=== PATIENT | female | born 1965 | race Caucasian/White ===

== ENCOUNTER 2018-06-12 13:39 | Outpatient (REF) | payer BC, SELFPAY ==
--- NOTE | 2018-06-12 11:30 | PAPFT_PTH ---
PATIENT: Nara Wren LOC: [facility] U#:[id number] AGE/SX: 52/F ROOM: RE06/12/[address]: ANGELES Brice : 1965 BED: DIS: 06/12/2018 SPEC #: [id number] RECD: 06/12/18 17:59 STATUS: STACIA RERosa #: [id number] GIGI: 06/12/18 11:[address]: Zoe Ro DEPT: [facility] Cytology RECD BY: Merle Lozoya Tissues: 1 - CX/ENDOCX FOR PAP SMEARS Procedures: PAP THIN PREP/UVM Screening HPV DNA PROBE Comments: [id number]
== END 2018-06-12 13:59 ==
LOC: LBN 13:39
PROVIDERS: PCP Nurse Practitioner Family; Visit Provider Nurse Practitioner Family
DX: Z12.4 Encounter for screening for malignant neoplasm of cervix (principal); Z11.51 Encounter for screening for human papillomavirus (HPV)
CPT/HCPCS: 88142; 87624

== ENCOUNTER 2018-06-18 08:38 | Outpatient (CLI) | payer BC, SELFPAY ==
[2018-06-18 11:07] LABS: BUN 13 mg/dL (7-18); Calcium 9.4 mg/dL (8.5-10.1); Chloride 100 mmol/L (98-107); FREE T4 0.82 ng/dL (0.76-1.46); Glucose 84 mg/dL (70-100); Potassium 4.2 mmol/L (3.5-5.1); Sodium 138 mmol/L (136-145); TSH 1.54 uIU/mL (0.358-3.74)
[2018-06-18 11:24] LABS: Cholesterol 295 mg/dL (50-200); HDL Cholesterol 74 mg/dL (40-60); LDL CHOLESTEROL 200 mg/dL (<100); Triglyceride 66 mg/dL (30-150)
== END 2018-06-18 08:58 ==
PROVIDERS: PCP Nurse Practitioner Family; Visit Provider Nurse Practitioner Family
DX: E78.5 Hyperlipidemia, unspecified (principal); L65.9 Nonscarring hair loss, unspecified
CPT/HCPCS: 36415; 80048; 80061; 83721; 84439; 84443

== ENCOUNTER 2019-01-04 09:05 | Day surgery (SDC) | payer BC, SELFPAY ==
--- NOTE | 2019-01-04 06:21 | W.COLOREPORT ---
Date of service: 01/04/19 Time of Service: 10:18 Colonoscopy Report Date of procedure: 01/04/19 Pre-op diagnosis general: Colon Cancer Screening and Family History Post-op diagnosis procedure note: other (Polyps) Procedure: Colonoscopy with polypectomy by forceps and snare Surgeon: Kaya Carson Anesthesia proc note operative: other (General/ ASA1 /Mario Alberto Mims, ASSOCIATE DIRECTOR OF SALES) Estimated blood loss (mL): 3 Pathology: other (cecal polyp, ascending polyp and sigmoid polyp) Complications: None Disposition: same day Indications: Mrs. Wren is a pleasant 53 year old female who was seen in the office for a colonoscopy. She has a family history of colon cancer. Risks, benefits and complications have been reviewed. Complications include but are not limited to bleeding, pain, perforation, missed small lesion/polyp, sore throat, aspiration and adverse reaction to the medications. Questions were entertained and answered to their satisfaction and they wished to proceed. No guarantees were given or implied. Prep: Miralax/Dulcolax Procedure Start Time: 10:18 Procedure End Time: 10:46 Retraction Time: 23 minutes Findings: Small sessile polyp right at the edge of the appendiceal orifice Pedunculated polyp in the ascending colon Sessile polyp in the sigmoid colon Procedure Description: After informed consent was obtained the patient was taken to the procedure room and placed in a left decubitous position. Monitors were applied and a time out was done. The patients name, date of , procedure, allergies to medications and metal in their body was reviewed. The patient was then sedated. Once sedated and comfortable a rectal exam was done. External exam was normal. Internal exam revealed a normal sphincter tone and no palpable masses. The scope was then introduced and retro-flexed. No internal hemorrhoids were identified. The scope was then advanced to the cecum without difficulty. The TI and appendiceal orifice were identified. The prep was adequate. The scope was then slowly retracted over 23 minutes back into the rectum. Polyps were removed with cold forceps in the cecum, in the ascending and sigmoid colon with snare. The scope was removed and the patient was woken up and taken back to Same day surgery in stable condition. The patient tolerated the procedure well and there were no immediate complications. Follow up: The patient should follow up in 3-5 years unless they develop changes in bowel habits or other new gastrointestinal complaints.
--- NOTE | 2019-01-04 06:24 | PDOC.DSDIS_ITS ---
Discharge Plan Disposition Patient Disposition: HOME Condition: Good Discharge Details Reason For Visit: Colon Cancer Screening Attending Provider: Kaya Carson Primary Care Provider: Zoe Ro Home Meds and New Rx's Prescriptions: Continued multivitamin Capsule 1 cap PO DAILY RF: 0 [place]-3 Fish Oil 300-1,000 mg Capsule 1 cap PO DAILY RF: 0 Discontinued polyethylene glycol 3350 17 gram/dose powder 238 g PO ONCE Qty: 238 RF: 0 bisacodyl [Dulcolax (bisacodyl)] 5 mg tablet,delayed release (DR/EC) 5 mg PO ONCE Qty: 4 RF: 0 Discharge Instructions Instructions: Colonoscopy (DC), Colorectal Polyps (DC) Additional Instructions: Findings: 3 polyps Follow up: 3-5 years Please call if you develop: fevers >101.5 Nausea or Vomiting Abdominal pain that is not transient DAY SURGERY UNIT POST COLONOSCOPY INSTRUCTIONS 1. Because there will be medication in your system for the next 24 hours, you may feel a little sleepy. Your coordination will be affected. Therefore: a. Do not drive or operate dangerous equipment for 24 hours. b. Do not drink alcohol beverages for 24 hours (not even beer). c. Plan to go home and rest for the day. 2. Generally there are no restrictions on your activity after a day or so has gone by, but you may feel a bit fatigued for a few days. 3 After you arrive home you may have a light meal and return to a normal diet as you can tolerate it without feeling sick to your stomach. 4. After surgery, you may feel pain or discomfort. This should be only transient, but if it persists please contact your doctor. 5. If there are any questions regarding the findings of your procedure, please feel free to contact your doctor. 6. If you are unable to contact your doctor with a problem, contact the hospital at [phone]. 7. Continue all your regular medications unless directed otherwise. I understand the above instructions and have no questions. Signature of Patient or Responsible Adult Escort Date/Time Name of Responsible Adult Escort Signature of Nurse Date/Time Activity:: Activity as Tolerated Diet:: As Tolerated Discharge Orders Discharge Orders: Discharge Order (Routine); Ordered 01/04/19 Ordered By: Kaya Carson DS: Diagnosis Discharge Diagnosis (1) S/P colonoscopy: Status: Acute (2) Colorectal polyp detected on colonoscopy: Status: Acute
[2019-01-04 09:13] VITALS: BP 116/75; PULSE 78; RESP 16; TEMP 37.2; O2SAT 96
[2019-01-04] MEDS: Lactated Ringers 1,000 ML 80 ML IV (09:36)
--- NOTE | 2019-01-04 10:25 | BOWEL_PTH ---
PATIENT: Nara Wren LOC: [facility] U#:[id number] AGE/SX: 53/F ROOM: RE01/04/[address]: Kaya Carson MD : 1965 BED: DIS: 01/04/2019 SPEC #: [id number] RECD: 01/04/19 12:50 STATUS: STACIA REQ #: [id number] GIGI: 01/04/19 10:[address]: Kaya Carson DEPT: Surgical Specimen RECD BY: Merle Lozoya ENTERED: 01/04/19 12:51 SP TYPE: Bowel OTHR DR: Zoe Ro, ANGELES Tissues: 1 - BIOPSY BOWEL 2 - BIOPSY BOWEL 3 - BIOPSY BOWEL Procedures: GROSS AND MICRO LEVEL 4 Comments: [id number]
[2019-01-04 11:29] VITALS: BP 122/75; PULSE 60; RESP 16; TEMP 36.1; O2SAT 98
== END 2019-01-04 11:40 | disposition home or self-care (01) ==
LOC: SUR 09:06
PROVIDERS: PCP Nurse Practitioner Family; Visit Provider Surgery
PROC: 0DJD8ZZ Inspection of Lower Intestinal Tract, Via Natural or Artificial Opening Endoscopic (ICD-10-PCS; CPT 45378; principal; 2019-01-04 10:30)
DX: Z12.11 Encounter for screening for malignant neoplasm of colon (principal); D12.0 Benign neoplasm of cecum; D12.2 Benign neoplasm of ascending colon; K63.5 Polyp of colon; Z80.0 Family history of malignant neoplasm of digestive organs
CPT/HCPCS: 45385; 45380; 88305; J2405; J3010

== ENCOUNTER 2019-05-03 12:17 | Outpatient (CLI) | payer BC, SELFPAY ==
[2019-05-05 11:34] LABS: Wasp Venom IgE <0.35 kU/L; White Faced Hornet Venom IgE <0.35 kU/L
[2019-05-05 17:32] LABS: CLASS 0; Venom Bumble Bee IgE <0.10 kU/L (<0.35)
== END 2019-05-03 12:37 ==
PROVIDERS: PCP Nurse Practitioner Family; Visit Provider Otolaryngology Otolaryngology/Facial Plastic Surgery
DX: W57.XXXA Bitten or stung by nonvenomous insect and other nonvenomous arthropods, initial encounter (principal); T14.8XXA Other injury of unspecified body region, initial encounter
CPT/HCPCS: 36415; 86003

== ENCOUNTER 2022-11-04 17:58 | Emergency (ER) | payer OTHER, SELFPAY ==
[2022-11-04 18:00] VITALS: BP 165/106; PULSE 99; RESP 16; TEMP 36.8; O2SAT 97
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
[2022-11-04] MEDS: Ibuprofen 600 MG TAB PO (18:33)
[2022-11-04] MEDS: Acetaminophen 500 MG TAB 1000 MG PO (18:33)
--- NOTE | 2022-11-04 18:52 | DI.RAD_ITS ---
Exam(s) XR FOOT LT COMPLETE EXAM: XR FOOT LT COMPLETE CLINICAL HISTORY: 4th toe injury. TECHNIQUE: 2D digital imaging was performed. Three views. COMPARISON: No exams were available for comparison FINDINGS: BONES: No acute fracture is present. No bony destructive lesion is seen. Small heel spurs. JOINTS: No dislocation present. Mild degenerative changes 1st MTP joint. SOFT TISSUE: Normal. IMPRESSION: Unremarkable radiographs of the left foot. DATA REPOSITORY: RADIATION DOSE DELIVERED:
--- NOTE | 2022-11-04 19:17 | DI.VRAD_ITS ---
PROCEDURE INFORMATION: Exam: XR Left Foot Exam date and time: 11/04/2022 6:52 PM Age: 57 years old Clinical indication: Pain; Foot; Left TECHNIQUE: Imaging protocol: Radiologic exam of the left foot. Views: 3 or more views. COMPARISON: No relevant prior studies available. FINDINGS: Bones/joints: Minimal calcaneal spurring. No acute fracture or dislocation. Degenerative changes at the 1st metatarsophalangeal joint Soft tissues: Normal. IMPRESSION: No acute findings. Degenerative changes as noted Dictated and Authenticated by: Rogelio Cruz MD. Ordering:MISHA Sotelo MD
[2022-11-04 19:55] VITALS: BP 151/93; PULSE 78; RESP 16; TEMP 36.7; O2SAT 95
--- NOTE | 2022-11-06 17:29 | NUR.NOTE ---
Nursing Note: Accessed patient chart to print provider note to be faxed to [facility] for billing purposes.
== END 2022-11-04 19:58 | disposition home or self-care (01) ==
PROVIDERS: Emergency Provider Physician Assistant; PCP Nurse Practitioner Family
DX: M79.675 Pain in left toe(s) (principal); W22.8XXA Striking against or struck by other objects, initial encounter
CPT/HCPCS: 99283; 73630

== ENCOUNTER 2024-04-27 10:51 | Outpatient (CLI) | payer OTHER, SELFPAY ==
--- NOTE | 2024-04-27 10:45 | RT.EKG_ITS ---
APPROVED REPORT Exam: Resting ECG Reason for Exam: chest discomfort Patient Location: O HR:100 bpm ECG Measurements Heart Rate 100 AXIS NH 135 P -14 QRSd 88 QRS -70 QT 356 T 15 QTc 460 Conclusion Sinus tachycardia...rate> 99 RSR' in V1 or V2, Left anterior fascicular block
== END 2024-04-27 10:52 | disposition home or self-care (01) ==
LOC: DI.CM 10:52
PROVIDERS: PCP Nurse Practitioner Family; Visit Provider Physician Assistant
DX: R07.89 Other chest pain (principal)
CPT/HCPCS: 93010

== ENCOUNTER 2024-04-27 11:22 | Emergency (ER) | payer OTHER, SELFPAY ==
[2024-04-27] VITALS (37 sets, daily range): BP systolic 50–179; BP diastolic 20–152; PULSE 58–119; RESP 12–32; TEMP 36.9; O2SAT 96–100
--- NOTE | 2024-04-27 11:15 | RT.EKG_ITS ---
APPROVED REPORT Exam: Resting ECG Reason for Exam: Chest Pain Patient Location: E HR:89 bpm ECG Measurements Heart Rate 89 AXIS IN 140 P 5 QRSd 99 QRS -63 QT 376 T 12 QTc 459 Conclusion Sinus 89 normal axis no stemi
--- NOTE | 2024-04-27 11:30 | DI.RAD_ITS ---
Exam(s) XR PORTABLE CHEST AP EXAM: XR PORTABLE CHEST AP CLINICAL HISTORY: CHEST PAIN TECHNIQUE: 2D digital imaging was performed of the chest. One image was obtained. An AP view was ob tained. COMPARISON: No exams were available for comparison FINDINGS: MEDIASTINUM: Normal. HEART: Normal. PULMONARY VASCULATURE: Normal. LUNGS: Clear. PLEURAL SPACE: No pleural effusion or pneumothorax. BONE:Within normal limits for the patient's age. OTHER FINDINGS:Normal. IMPRESSION: No acute pulmonary findings. DATA REPOSITORY: RADIATION DOSE DELIVERED:
[2024-04-27] MEDS: nitroGLYcerin 0.4 MG TAB SL (11:38)
[2024-04-27] MEDS: Aspirin 81 MG CHEW 324 MG CH (11:38)
[2024-04-27] MEDS: hydrALAZINE 20 MG/ML VIAL 10 MG IVP (11:38)
[2024-04-27] MEDS: Normal Saline Flush 10 ML SYR IVP (11:39)
[2024-04-27 11:40] LABS: Abs Immature Grans 0.04 10^3/uL (0.0-0.06); Absolute Basophil Count 0.05 10^3/uL (0.0-0.2); Absolute Eosinophil Count 0.09 10^3/uL (0.0-0.7); Absolute Lymphocyte Count 2.56 10^3/uL (1.2-3.4); Absolute Monocyte Count 0.58 10^3/uL (0.1-0.8); Absolute Neutrophil Count 2.89 10^3/uL (1.2-6.7); Basophils % 0.8 %; Eosinophils % 1.4 %; HCT 44.7 % (36.0-46.0); HGB 15.4 g/dL (11.2-15.7); Immature Grans % 0.6 %; Lymphocytes % 41.2 %; MCH 34.1 pg (27.0-33.0); MCHC 34.5 % (32.0-36.0); MCV 99 fL (80-95); MPV 9.5 fL (8.0-11.0); Monocytes % 9.3 %; Neutrophils % 46.7 %; Platelet Count 219 10^3/uL (130-400); RBC 4.52 10^6/uL (3.93-5.22); RDW 13.7 % (11.7-14.6); RDW-SD 50.4 fL; WBC 6.21 10^3/uL (4.4-10.8)
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
[2024-04-27 11:57] LABS: ALT 67 U/L (14-59); AST 31 U/L (15-37); Albumin 4.3 g/dL (3.4-5.0); Alkaline Phosphatase 107 U/L (46-116); Anion Gap 11.8 mmol/L (3-11); BUN 15 mg/dL (7-18); Bilirubin, Total 0.59 mg/dL (0.2-1.0); CO2 27.2 mmol/L (21.0-32.0); CREATININE 0.9 mg/dL (0.55-1.02); Calcium 10.3 mg/dL (8.5-10.1); Chloride 102 mmol/L (98-107); Estimated GFR 74.57 (mL/min/1.73m2); Glucose 107 mg/dL (74-106); Magnesium 1.9 mg/dL (1.8-2.4); Potassium 3.9 mmol/L (3.5-5.1); Sodium 141 mmol/L (136-145); Total Protein 8.7 g/dL (6.4-8.2); Troponin I < 50 ng/L (< or =60)
[2024-04-27 13:01] LABS: Troponin I < 50 ng/L (< or =60)
== END 2024-04-27 13:30 | disposition home or self-care (01) ==
PROVIDERS: Emergency Provider Emergency Medicine; PCP Nurse Practitioner Family
DX: R07.9 Chest pain, unspecified (principal); R11.0 Nausea; I10 Essential (primary) hypertension
CPT/HCPCS: 36415; 80053; 93005; 96374; 99284; 71045; 83735; 84484; 85025; 93010; 99283; J0360

== ENCOUNTER 2024-11-19 11:02 | Outpatient (REF) | payer OTHER, SELFPAY ==
--- NOTE | 2024-11-19 09:45 | PAPFT_PTH ---
PATIENT: Nara Wren LOC: [facility] U#:[id number] AGE/SX: 59/F ROOM: RE11/19/[address]: ANGELES Brice : 1965 BED: DIS: 11/19/2024 SPEC #: [id number] RECD: 11/19/24 13:06 STATUS: STACIA KIM #: [id number] GIGI: 11/19/24 09:[address]: Zoe Ro DEPT: [facility] Cytology RECD BY: Merle Lozoya Tissues: 1 - CX/ENDOCX FOR PAP SMEARS Procedures: PAP THIN PREP/UVM Screening HPV DNA PROBE Comments: [id number] (HPV 16 & 18/45)
== END 2024-11-19 11:03 | disposition home or self-care (01) ==
LOC: LBN 11:02
PROVIDERS: PCP Nurse Practitioner Family; Visit Provider Nurse Practitioner Family
DX: Z12.4 Encounter for screening for malignant neoplasm of cervix (principal)
CPT/HCPCS: 88142; 87624

== ENCOUNTER 2025-01-04 02:06 | Outpatient (CLI) | payer OTHER, SELFPAY ==
--- NOTE | 2025-01-04 12:41 | DI.MAMMO_ITS ---
Exam(s) MAMMO SCREENING EXAM: MAMMO SCREENING CLINICAL HISTORY: screening,Z12.39 TECHNIQUE: Bilateral full field digital CC and MLO mammographic images were obtained with 3D tomosyn thesis and utilizing computer aided detection (CAD). COMPARISON: Available for comparison. FINDINGS: Masses/Architectural Distortion: No suspicious masses or areas of architectural distortion are presen t. Microcalcifications: No suspicious pleomorphic-type are seen. Skin Thickening/Nipple Retraction: None. IMPRESSION: 1. No significant interval change with no specific features of malignancy noted. 2. Unless there is more urgent need, screening mammography is recommended, as per [place] [employer] guidelines. BI-RADS Category 1 - Negative Breast Density - Category B - There are scattered areas of fibroglandular density. Breast density Category C or D implies that the patient has dense breast tissue. Dense breast tissue can make it harder to find cancer on a mammogram. Dense breast tissue is also associated with an incr eased risk of breast cancer. This information about the result of the mammogram report was provided to the patient to raise their awareness. Use this report when you speak with the patient about their risks for breast cancer, which includes their family history. At that time, you may recommend additional screening tests (Ultrasoun d or MRI) as these tests may add significant information. A negative radiographic report should not delay biopsy if a dominant or clinically suspicious mass is present. Up to ten percent of cancers are not identified on mammography. A negative report may reinforce clinical impression. Adenosis and dense breasts may obscure an underlying neoplasm. False positive reports average 6 to 10%. Patient will receive a letter notifying them of these results.
== END 2025-01-04 02:26 ==
LOC: DI 02:06
PROVIDERS: PCP Nurse Practitioner Family; Visit Provider Nurse Practitioner Family
DX: Z12.31 Encounter for screening mammogram for malignant neoplasm of breast (principal); R92.323 Mammographic fibroglandular density, bilateral breasts
CPT/HCPCS: 77063; 77067

== ENCOUNTER 2025-07-14 06:57 | Day surgery (SDC) | payer OTHER, SELFPAY ==
[2025-07-14 07:05] VITALS: BP 138/88; PULSE 67; RESP 16; TEMP 36.7; O2SAT 99
[2025-07-14 07:23] VITALS: BMI 34.3
--- NOTE | 2025-07-14 07:23 | W.ANESPRE ---
General Info Date of Service Date Performed: 07/14/25 Height: 5 ft 4 in Weight: 90.7 kg Body Mass Index (BMI): 34.3 Surgical Procedure: Operation Date: 07/14/25 08:20 Proposed Procedure Side Surgeon p Colonoscopy Marion Posada MD Meds Allergies and Home Medications Allergies Allergy/AdvReac Type Severity Reaction Status Date / Time benzonatate (From Tessalon Allergy Intermediate Rash Verified 07/14/25 07:15 Perles) gluten AdvReac Intermediate Diarrhea Verified 07/14/25 07:15 Home Medication Medication Instructions Recorded multivitamin 1 cap PO DAILY 12/31/18 omega-3s 300 ag-oyc-ghf-other 1 cap PO DAILY 12/31/18 zmerq1h-eegx oil 1,000 mg capsule ([place]-3 Fish Oil) fluticasone propionate 50 1 spray intranasal DAILY 07/01/24 mcg/actuation nasal spray,suspension bisacodyl 5 mg tablet,delayed 5 mg PO ONCE Colonoscopy Bowel 06/30/25 release Prep #4 tabs polyethylene glycol 3350 17 238 g PO ONCE #238 grams 06/30/25 gram/dose oral powder Current Visit Medications: Current Medications Generic Name Dose Route Start Last Admin Trade Name Freq PRN Reason Stop Dose Admin Ringer's Solution 1,000 mls @ 80 mls/hr 07/14/25 06:00 IV 07/14/25 23:59 INFUSION SUGAR IV Miscellaneous Supplies 1 each 07/14/25 06:00 Iv Access IV 07/14/25 23:59 DIRECTED SUGAR Sodium Biphosphate/Sodium Phosphate 133 ml 07/14/25 06:00 Na Phosphate Enema-Adult 133 Ml Btl DC 07/14/25 23:59 DIRECTED PRN Sodium Chloride 0 ml 07/14/25 06:00 Normal Saline Flush 10 Ml Syr IV 07/14/25 23:59 PRN PRN Sodium Chloride 0 ml 07/14/25 06:00 Normal Saline 10 Ml Vial IJ 07/14/25 23:59 DIRECTED PRN Sterile Water 0 ml 07/14/25 06:00 Water,Injection,Sterile 10 Ml Vial IJ 07/14/25 23:59 DIRECTED PRN PFSH Active Problems Active Problems: Problem Status Onset Code Elevated BP without diagnosis of hypertension Chronic R03.0 Hyperlipidemia Chronic E78.5 Obesity Chronic E66.9 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 pelvic organs Chronic N81.9 Vasomotor symptoms due to menopause Chronic N95.1 Medical History Medical History Nontoxic nodular goiter Tubular adenoma of colon On 2019 colonoscopy Surgical History Surgical History S/P colonoscopy (01/04/19) S/P fine needle aspiration (~09/09/02) pathology showed non toxic nodular goiter Tobacco Smoking/Tobacco Use Status: Never Passive smoking exposure: Yes Second hand exposure: Yes Alcohol Alcohol Intake: current Alcohol intake frequency: 0-2 drinks per day Alcohol type: wine Substance Use Substance use: Never Substance use type: does not use Vital Signs and Lab Results Vital Signs Most Recent Vital Signs in EMR: Most Recent Vital Signs Temp Pulse Resp BP Pulse Ox 36.7 C 67 16 138/88 99 07/14/25 07:05 07/14/25 07:05 07/14/25 07:05 07/14/25 07:05 07/14/25 07:05 Imaging and Studies Imaging and Studies Study information below may be from another EMR and interpreted by another provider. Please see original notes in EMR for more complete details. EKG Summary: 04/27/24 Conclusion Sinus 89 normal axis no stemi Anesthesia Assessment and Plan Anesthesia History Personal History: No History of Anesthesia Complications Family History: No Family History of Anesthesia Complications Exercise Tolerance Exercise Tolerance: Metabolic Equivalents>4 Pertinent Negatives Pertinent Negatives: No Symptoms of GERD, No Major Cardiovascular Symptoms or Complaints and No Major Pulmonary Symptoms or Complaints Cardiac & Pulmonary Exam Cardiac Exam: Normal S1/S2 Heart Sounds Pulmonary Exam: Clear Bilateral Breath Sounds Implantable Cardiac Device Does patient have a Pacemaker or an ICD?: No Airway Exam Known Difficult Airway: No Mallampati Class: 3 Mouth Opening: Normal (> 3cm) Thyromental Distance: Greater than 3 cm Neck Range of Motion: Full ROM Neck Circumference: Thick Teeth Condition: Normal Dentition ASA Classification ASA Score: ASA 2 Emergency Case?: No NPO Status NPO Status: NPO Clears >2 hours, Solids >8 hours Anesthesia Plan Resuscitation Status: Full Code Anesthesia Technique: General Anesthesia Airway Planned: Natural Airway Monitors Used: Standard Monitors
[2025-07-14] MEDS: Lactated Ringers 1,000 ML 80 ML IV (07:30)
--- NOTE | 2025-07-14 08:17 | BOWEL_PTH ---
PATIENT: Nara Wren LOC: [facility] U#:[id number] AGE/SX: 59/F ROOM: RE07/14/[address]: Marion Posada MD : 1965 BED: DIS: 07/14/2025 SPEC #: [id number] RECD: 07/14/25 11:02 STATUS: STACIA KIM #: [id number] GIGI: 07/14/25 08:[address]: Marion Posada DEPT: Surgical Specimen RECD BY: Merle Lozoya ENTERED: 07/14/25 11:05 SP TYPE: Bowel OTHR DR: Zoe Ro, ANGELES Tissues: 1 - BIOPSY BOWEL 2 - BIOPSY BOWEL 3 - BIOPSY BOWEL 4 - BIOPSY BOWEL Procedures: GROSS AND MICRO LEVEL 4 Comments: [id number]
--- NOTE | 2025-07-14 08:43 | COLE_ITS ---
Date of service: 07/14/25 Time of Service: 08:43 Colonoscopy Report Date of procedure: 07/14/25 Pre-op diagnosis general: History of colon polyps Post-op diagnosis procedure note: same (1. cecum polyp. 2. multiple transverse colon polyps. 3. rectum polyp. 4. multiple distal rectum polyps) Procedure: Colonoscopy with cold forceps polypectomy, hot snare polypectomy, endoclip application Surgeon: Marion Posada Anesthesia Type: General:No Airway Estimated blood loss (mL): 4 Pathology: other (1. cecum polyp. 2. multiple transverse colon polyps. 3. rectum polyp. 4. multiple distal rectum polyps) Complications: None Indications: History of colon polyps, mother and father with colon cancer Prep: Miralax/Dulcolax (excellent) Procedure Description: Informed consent was obtained and the patient was taken to the procedure area. The patient was placed in left lateral decubitus position on the procedure table. Timeout was performed. Anesthesia was induced. A lubricated c olonoscope was inserted through the anus and passed to the cecum. The cecum was identified by the ileocecal valve and the appendiceal orifice. The scope was then slowly withdrawn and the colonic and rectal mucosa examined. TI intubated and examined. It appears normal. Hyperplastic lymphoid follicles noted. cecum with 4mm sessile polyp excised with cold forceps. Transverse colon with two polyps, 7mm sessile and 10mm by 4mm sessile. Both removed piecemeal with cold forceps. Removal and retrieval was complete. Rectum at 25cm with a 12mm sessile polyp with flat component on edges. Excised with hot snare and cold forceps, retrieved with polyp trap. Removal and retrieval were complete. Resolution endoclip placed to reapproximate mucosa and prevent bleeding. Distal rectum at the junction with the internal hemorrhoids with multiple 2-3mm polypoid lesions, entry level marketing representative biopsies obtained with cold forceps. No diverticulosis was seen. Uncomplicated internal hemorrhoids present. Assessment and plan: Family history of colon cancer in mother and father history of adenomatous polyps cecum polyp transverse colon polyps (2) rectum polyp multiple distal rectum polyps (3) All polyps seen were excised today. Recommend next colonoscopy in 3 years. Will follow up on pathology report and notify patient of result of the types of polyps grown today.
[2025-07-14 08:46] VITALS: BP 106/84; PULSE 65; RESP 14; TEMP 36.2; O2SAT 98
--- NOTE | 2025-07-14 08:50 | W.PM.DSUDISC ---
Date of service: 07/14/25 Discharge Plan Disposition Patient Disposition: Home Condition: Stable Discharge Details Reason For Visit: colonoscopy Attending Provider: Marion Posada Primary Care Provider: Zoe Ro Home Meds and New Rx's Prescriptions: Continued fluticasone propionate 50 mcg/actuation spray,suspension 1 spray intranasal DAILY Rx Instructions: administer into each nostril multivitamin Capsule 1 cap PO DAILY [place]-3 Fish Oil 300-1,000 mg Capsule 1 cap PO DAILY Discontinued bisacodyl 5 mg tablet,delayed release (DR/EC) 5 mg PO ONCE Qty: 4 0RF Rx Instructions: Per Colonoscopy bowel prep instructions polyethylene glycol 3350 17 gram/dose powder 238 g PO ONCE Qty: 238 0RF Rx Instructions: For Colonoscopy bowel prep, as directed by office Discharge Instructions Additional Instructions: Family history of colon cancer in mother and father history of adenomatous polyps cecum polyp (1) transverse colon polyps (2) rectum polyp (1) multiple distal rectum polyps near the hemorrhoids (3) All polyps seen were removed today. The single rectum polyp was larger in size, and a clip was placed to help with healing and prevent bleeding. This will fall off on its own. I think your next colonoscopy will be due in 3 years. I will follow up on polyp biopsy report and notify you of the types of polyps you are growing, and will confirm about the timing of your next colonoscopy. Stand Alone Forms: Portal Information Discharge Orders Discharge Orders: Discharge Order (Routine); Ordered 07/14/25 Ordered By: Marion Posada DS: Diagnosis Discharge Diagnosis (1) Encounter for colonoscopy due to history of adenomatous colonic polyps: Status: Acute (2) Family history of colon cancer: Status: Acute (3) Polyp of cecum: Status: Acute (4) Polyp of transverse colon: Status: Acute (5) Rectal polyp: Status: Acute
[2025-07-14 09:08] VITALS: BP 110/73; PULSE 51; RESP 16; TEMP 36.2; O2SAT 99
--- NOTE | 2025-07-14 09:20 | W.ANESPOSTOP ---
Postoperative Evaluation Date, Time and Location Date Performed: 07/14/25 Time Performed: :20 Patient Location: Day Surgery Unit Vital Signs Most Recent Imported Vital Signs: Most Recent Vital Signs Temp Pulse Resp BP Pulse Ox 36.2 C L 51 L 16 110/73 99 07/14/25 09:08 07/14/25 09:08 07/14/25 09:08 07/14/25 09:08 07/14/25 09:08 Pain Score Most Recent Pain Score: Most Recent Pain Score Pain Level 0 07/14/25 09:08 Assessment Mental Status: Awake (Alert & Oriented to Patient Baseline) Airway and Respiratory Function: Patent airway with normal (patient baseline) respiratory exam Cardiovascular Function: Hemodynamically Stable Hydration Status: Adequately Hydrated Nausea & Vomiting: No Nausea or Vomiting Pain: Pt. Denies Any Pain Peripheral Nerve Block: Patient did not receive a nerve block
== END 2025-07-14 09:20 | disposition home or self-care (01) ==
PROVIDERS: PCP Nurse Practitioner Family; Visit Provider Surgery
PROC: 0DJD8ZZ Inspection of Lower Intestinal Tract, Via Natural or Artificial Opening Endoscopic (ICD-10-PCS; CPT 45378; principal; 2025-07-14 08:15)
DX: Z12.11 Encounter for screening for malignant neoplasm of colon (principal); Z80.0 Family history of malignant neoplasm of digestive organs; D12.0 Benign neoplasm of cecum; D12.4 Benign neoplasm of descending colon; K62.1 Rectal polyp
CPT/HCPCS: 45385; 45380; 88305; J2003; J2405; J2704